=== PATIENT | female | born 1940 | race Caucasian/White ===

== ENCOUNTER 2023-05-13 19:19 | Emergency (ER) | payer MEDICARE ==
[~2023-05-13] VITALS: Ht 154 cm; Wt 72.0 kg
[2023-05-13] MEDS ORDERED: ORPHENADRINE 60 MG/2 ML (NORFLEX) AMP (ED ONLY) IM ONE (20:00)
[2023-05-13] MEDS ORDERED: KETOROLAC 30 MG/ML VIAL IM ONE (20:00)
--- NOTE | 2023-05-13 20:01 | ED Neck-Back Pain/Injury ---
General Chief Complaint: Head/Cervical Problems Stated Complaint: NECK/RIGHT SHOULDER PAIN Nursing Triage Note: PATIENT VERBALIZED RT NECK/RT SHOULDER PAIN FOR ONE WEEK, UNKNOWN CAUSE, STATES HAS USED MULTIPLE CREAMS AND LOATIONS WITH NO RELIEF. PATIENT STATES TOOK OTC PAIN MEDS NO RELIEF. STATES ONLY THING THAT HELPS IS HEAT Source of Information: Patient Exam Limitations: No Limitations History of Present Illness Date Seen by Provider: May 13, 2023 Time Seen by Provider: 19:58 Initial Comments Patient is a 82-year-old female who presents to ED with right-sided neck pain. This neck pain started around 1 week ago. She was playing scramble on a computer at the time the pain started. She states she has to move this ball around while playing. She states her arm was extended out from the body during the game. The pain is described as sharp on the right side of the neck. She denies any falls or trauma. Intermittently she has a sharp shooting pain that radiates to the right shoulder. She gets relief when her arm is still. With any type of movement she gets increasing pain. She has been applying heating pads, muscle creams without much improvement. She states she took a Treva- [place] which seemed to improve but she states she had nausea at the time of the pain. Denies history of similar symptoms. No rating pain to the right hand. She denies chest pain, shortness of breath, headache, dizziness, visual changes. Pain does somewhat occur with head movement. She is extremely anxious on arrival. Patient is hypertensive not currently on blood pressure medication. Patient [place] fever, chills, body aches, vomit, diarrhea. Allergies and Home Medications Allergies Coded Allergies: Penicillins (Unverified Allergy, Unknown, 05/13/23) Sulfa (Sulfonamide Antibiotics) (Unverified Allergy, Unknown, 05/13/23) amoxicillin (Unverified Allergy, Unknown, 05/13/23) codeine (Unverified Allergy, Unknown, 05/13/23) erythromycin base (Unverified Allergy, Unknown, 05/13/23) sulfamethoxazole (Unverified Allergy, Unknown, 05/13/23) trimethoprim (Unverified Allergy, Unknown, 05/13/23) Patient Home Medication List Home Medication List Reviewed: Yes Amlodipine Besylate (Amlodipine Besylate) 5 Mg Tablet, 5 MG PO DAILY Prescribed by: KALIN BECK on 05/13/232218 Cyclobenzaprine HCl (Cyclobenzaprine HCl) 10 Mg Tablet, 10 MG PO BID Prescribed by: KALIN BECK on 05/13/232218 Review of Systems Constitutional: No chills, No diaphoresis, No fever, No malaise, No weakness EENTM: No ear pain, No double vision Respiratory: No cough, No dyspnea on exertion Cardiovascular: No chest pain Gastrointestinal: No abdominal pain, No diarrhea, No nausea, No vomiting Genitourinary: No decreased output, No discharge Musculoskeletal: No back pain; muscle pain, neck pain Skin: No change in color, No change in hair/nails All Other Systems Reviewed Negative Unless Noted: Yes Past Dajlenw-Hzkzhm-Vilkwp Hx Patient Social History Tobacco Use?: No Substance use?: No Alcohol Use?: No Pt feels they are or have been: No Immunizations Up To Date Influenza Vaccine Up-to-Date: No; Not Current First/Initial COVID19 Vaccinat: n/a Second COVID19 Vaccination [place]: n/a Physical Exam Vital Signs Vital Signs - First Documented 05/13/23 19:30 Temp 36.8 Pulse 82 Resp 18 B/P (MAP) 219/91 (133) Pulse Ox 96 O2 Delivery Room Air Capillary Refill : Less Than 3 Seconds Height, Weight, BMI Height: '" Weight: lbs. oz. kg; 30.00 BMI Method: General Appearance: No Apparent Distress, WD/WN HEENT: PERRL/EOMI, TMs Normal, Normal ENT Inspection, Pharynx Normal Neck: Supple, Other (Right-sided trapezius tenderness. Normal active range of motion the neck without pain. Negative Spurling sign. Point tenderness to the right posterior shoulder. 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 as 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 Skin: Normal Color, Warm/Dry Progress/Results/Core Measures Results/Orders Lab Results Laboratory Tests Test 05/13/23 21:20 Range/Units White Blood Count 7.6 4.3-11.0 10^3/uL Red Blood Count 4.35 3.80-5.11 10^6/uL Hemoglobin 13.7 11.5-16.0 g/dL Hematocrit 41 35-52 % Mean Corpuscular Volume 95 80-99 fL Mean Corpuscular Hemoglobin 32 25-34 pg Mean Corpuscular Hemoglobin Concent 33 32-36 g/dL Red Cell Distribution Width 13.2 10.0-14.5 % Platelet Count 226 130-400 10^3/uL Mean Platelet Volume 9.3 9.0-12.2 fL Immature Granulocyte % (Auto) 0 % Neutrophils (%) (Auto) 51 42-75 % Lymphocytes (%) (Auto) 37 12-44 % Monocytes (%) (Auto) 9 0-12 % Eosinophils (%) (Auto) 3 0-10 % Basophils (%) (Auto) 1 0-10 % Neutrophils # (Auto) 3.8 1.8-7.8 10^3/uL Lymphocytes # (Auto) 2.8 1.0-4.0 10^3/uL Monocytes # (Auto) 0.7 0.0-1.0 10^3/uL Eosinophils # (Auto) 0.2 0.0-0.3 10^3/uL Basophils # (Auto) 0.1 0.0-0.1 10^3/uL Immature Granulocyte # (Auto) 0.0 0.0-0.1 10^3/uL Prothrombin Time 13.5 12.2-14.7 SEC INR Comment 1.0 0.8-1.4 Activated Partial Thromboplast Time 33 24-35 SEC Sodium Level 140 135-145 MMOL/L Potassium Level 3.6 3.6-5.0 MMOL/L Chloride Level 107 98-107 MMOL/L Carbon Dioxide Level 24 21-32 MMOL/L Anion Gap 9 5-14 MMOL/L Blood Urea Nitrogen 16 7-18 MG/DL Creatinine 0.94 0.60-1.30 MG/DL Estimat Glomerular Filtration Rate 60 BUN/Creatinine Ratio 17 Glucose Level 91 70-105 MG/DL Calcium Level 8.9 8.5-10.1 MG/DL Corrected Calcium 9.0 8.5-10.1 MG/DL Total Bilirubin 0.6 0.1-1.0 MG/DL Aspartate Amino Transf (AST/SGOT) 21 5-34 U/L Alanine Aminotransferase (ALT/SGPT) 16 0-55 U/L Alkaline Phosphatase 74 40-136 U/L Troponin I < 0.028 <0.028 NG/ML Total Protein 7.0 6.4-8.2 GM/DL Albumin 3.9 3.2-4.5 GM/DL My Orders Orders - HALEY BRASHER Cervical Spine 3 Views Or Less (05/13/23 19:55) Ketorolac Injection (Toradol Injection) (05/13/23 20:00) Orphenadrine Inj (Ed Only) (Norflex Inje (05/13/23 20:00) Cbc With Automated Diff (05/13/23 21:15) Comprehensive Metabolic Panel (05/13/23 21:15) Iv/Invasive Line Insertion .IV INSERT (05/13/23 21:15) Ekg Tracing (05/13/23 21:18) Troponin I [place] (05/13/23 21:18) Partial Thromboplastin Time (05/13/23 21:19) Protime With Inr (05/13/23 21:19) Hydralazine Injection (Apresoline Inject (05/13/23 22:00) Amlodipine Tablet (Norvasc Tablet) (05/13/23 22:15) Medications Given in ED Current Medications Medications Dose Ordered Sig/Joann Route Start Time Stop Time Status Last Admin Dose Admin Amlodipine Besylate 5 mg ONCE ONCE PO 05/13/23 22:15 05/13/23 22:16 DC 05/13/23 22:19 5 MG Hydralazine HCl 10 mg ONCE ONCE IV 05/13/23 22:00 05/13/23 22:01 DC 05/13/23 21:59 10 MG Ketorolac Tromethamine 30 mg ONCE ONCE IM 05/13/23 20:00 05/13/23 20:01 DC 05/13/23 20:32 30 MG Orphenadrine Citrate 60 mg ONCE ONCE IM 05/13/23 20:00 05/13/23 20:01 DC 05/13/23 20:32 60 MG Vital Signs/I&O 05/13/23 05/13/23 19:30 22:31 Temp 36.8 Pulse 82 Resp 18 B/P (MAP) 219/91 (133) 181/88 Pulse Ox 96 O2 Delivery Room Air Blood Pressure Mean: 133 Comment Sinus rhythm with short NM interval, moderate voltage criteria for LVH, 64 bpm, QRS duration 86 MS, QTc 460 MS Departure Communication (PCP) Patient is a 82-year-old female presents ED with right-sided cervical neck pain. This occurred after she was playing a game on the computer where she had to use her right arm. She states she felt like her arm was contracted in a neutral spot. She started having cramping and pain to her cervical neck and right trapezius. She has been having intermittent sharp shooting pain to the right shoulder. She denies of any specific weakness of this right arm that is new with her injury. She denies any falls. No headache, dizziness, chest pain, shortness of breath. she did report some nausea when the pain does occur. On exam she has no cervical midline tenderness. Normal active range of motion of the cervical spine without pain. Negative Spurling sign. Normal active range of motion of the shoulder without any evidence of weakness when assessing rotator cuff. She did have point tenderness to the right trapezius and right posterior shoulder suggesting more trigger point. She is extremely anxious. She was hypertensive /. She states she has a history of hypertension but does not want to take medication. Due to the hypertension added a EKG, general lab work and a troponin rule out referred pain. Her lab work was otherwise unremarkable, EKG showed normal sinus rhythm without evidence of ST elevation or depression or ischemic changes. She did receive 1 dose of IV hydralazine 10mg with improvement of blood pressure to 181/88. Likely has been elevated for some time. She has no focal neural deficits or strokelike symptoms suggesting a CT scan of the head. She is neurovascular intact with the upper extremities. There is no evidence of bruits. She states pain appears to be with any sudden change in movement of her right upper arm suggesting to be more muscular in nature. She would likely benefit with physical therapy. Potential point injections. Patient is anxious about the pain and was was suggesting a x-ray of her cervical spine. This is somewhat limited compared to a CT scan but did proceed. No known history of osteopenia or osteoporosis. X-ray of the cervical spine did not note any acute fracture. Does not appear to be cervical radiculopathy. Further evaluation may be needed. patient did receive a dose of amlodipine here. Normal kidney function. We will start with a prescription at 5 mg. She was requesting something different besides the topical muscle rub and heating pad. We will provide a few days worth of muscle racks her to try. Do not operate any machinery. She does not want any narcotics. Discussed anti-inflammatories as well but avoid excessive use. Recommend eating with NSAIDs. Continue monitoring blood pressure. You need to follow-up with your primary care physician regarding today's results and blood pressure. If continue worsening neck pain, headache, dizziness unilateral weakness or sensory changes to return back to ED. Impression Primary Impression: Neck sprain Additional Impression: Uncontrolled hypertension Disposition: HOME, SELF-CARE Condition: Stable Departure-Patient Inst. Decision time for Depature: 22:00 Referrals: MANUEL RIOS DO (PCP/Family) Primary Care Physician Patient Instructions: High Blood Pressure (DC) Add. Discharge Instructions: Recommend following up with your primary care physician to discuss further evaluation of neck pain. Recommend continue heat, topical muscle rubs. Prescribed a muscle relaxer. Do not drive or operate any machinery with the medication. Would likely benefit with physical therapy. Continue monitoring blood pressure and to follow-up with your primary care physician All discharge instructions reviewed with patient and/or family. Voiced understanding. Scripts Cyclobenzaprine HCl (Cyclobenzaprine HCl) 10 Mg Tablet 10 MG PO BID, #12 TAB Prov: HALEY BRASHER 05/13/23 Amlodipine Besylate (Amlodipine Besylate) 5 Mg Tablet 5 MG PO DAILY, #20 TAB Prov: HALEY BRASHER 05/13/23 HALEY BRASHER May 13, 2023 20:01
--- NOTE | 2023-05-13 20:16 | Diagnostic Imaging Report ---
INDICATION: 82-year-old female presents with right neck and right shoulder pain for one week. COMPARISONS: None FINDINGS: AP, lateral, and odontoid views of the cervical spine show some mild age-appropriate cervical spondylosis. The cervical vertebral bodies otherwise appear well aligned and vertebral body heights appear well-maintained. Prevertebral soft tissue as well as relationship of the dens to the lateral mass of C1 is reasonably well-maintained. 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 Dictated by: Dictated on workstation # [id number]
[2023-05-13 21:42] LABS: BASOPHILS # (AUTO) 0.1 10^3/uL (0.0-0.1); BASOPHILS % (AUTO) 1 % (0-10); EOSINOPHILS # (AUTO) 0.2 10^3/uL (0.0-0.3); EOSINOPHILS % (AUTO) 3 % (0-10); HEMATOCRIT 41 % (35-52); HEMOGLOBIN 13.7 g/dL (11.5-16.0); LYMPHOCYTES # (AUTO) 2.8 10^3/uL (1.0-4.0); LYMPHOCYTES % (AUTO) 37 % (12-44); MEAN CORPUSCULAR HEMOGLOBIN 32 pg (25-34); MEAN CORPUSCULAR HGB CONC 33 g/dL (32-36); MEAN CORPUSCULAR VOLUME 95 fL (80-99); MEAN PLATELET VOLUME 9.3 fL (9.0-12.2); MONOCYTES # (AUTO) 0.7 10^3/uL (0.0-1.0); MONOCYTES % (AUTO) 9 % (0-12); NEUTROPHILS # (AUTO) 3.8 10^3/uL (1.8-7.8); NEUTROPHILS % (AUTO) 51 % (42-75); PLATELET COUNT 226 10^3/uL (130-400); WHITE BLOOD COUNT 7.6 10^3/uL (4.3-11.0)
[2023-05-13 21:53] LABS: PROTHROMBIN TIME PATIENT 13.5 SEC (12.2-14.7)
[2023-05-13] MEDS ORDERED: hydrALAZINE (APESOLINE) 20 MG/ML VIAL IV ONE (22:00)
[2023-05-13 22:02] LABS: ALANINE AMINOTRANSFERASE 16 U/L (0-55); ALBUMIN 3.9 GM/DL (3.2-4.5); ALKALINE PHOSPHATASE 74 U/L (40-136); BILIRUBIN,TOTAL 0.6 MG/DL (0.1-1.0); BUN/CREATININE RATIO 17; CALCIUM 8.9 MG/DL (8.5-10.1); CARBON DIOXIDE 24 MMOL/L (21-32); CHLORIDE 107 MMOL/L (98-107); CREATININE SERUM 0.94 MG/DL (0.60-1.30); GFR ESTIMATED 60; GLUCOSE 91 MG/DL (70-105); POTASSIUM 3.6 MMOL/L (3.6-5.0); SODIUM 140 MMOL/L (135-145)
[2023-05-13] MEDS ORDERED: amLODIPine 5 MG (NORVASC) TAB PO ONE (22:15)
[2023-05-13] MEDS ORDERED: CYCL10TA25 PO (22:19)
[2023-05-13] MEDS ORDERED: AMLO-250 PO (22:19)
[2023-05-13 22:31] VITALS: BP 181/88
== END 2023-05-13 22:31 | disposition home or self-care (01) ==
LOC: EDUNIT# 19:19 → ER 19:22
DX: S13.9XXA Sprain of joints and ligaments of unspecified parts of neck, initial encounter (principal); I10 Essential (primary) hypertension; Z28.310 Unvaccinated for COVID-19; X58.XXXA Exposure to other specified factors, initial encounter
CPT/HCPCS: 36415; 72040; 80053; 84484; 85025; 85610; 85730; 93005